=== PATIENT | female | born 1970 | race Hispanic/Latino ===

== ENCOUNTER 2017-07-25 10:46 | Observation (INO) | payer BC, OTHER ==
[2017-07-25] MEDS ORDERED: Sodium Chloride 0.9% 500 ML IV STA (11:53)
--- NOTE | 2017-07-25 12:00 | ED PDOC ---
HPI: Chest Pain Time Seen by Provider: 07/25/17 11:38 Chief Complaint (Nursing): Chest Pain Chief Complaint (Provider): chest pain History Per: Patient History/Exam Limitations: no limitations Onset/Duration Of Symptoms: Days (yesterday night) Current Symptoms Are (Timing): Better Additional Complaint(s): Pt. with off and on chest tightness to the left going to the shoulder and arm. No numbness, tingles, weakness, dyspnea, fever, cough, leg pain, long distance travel, hormone use. Has belching. No numbness, tingles. Seen at [facility] and sent to the ED. Past Medical History Reviewed: Nursing Documentation, Vital Signs Vital Signs: Last Vital Signs Temp 97.8 F 07/25/17 10:58 Pulse 59 L 07/25/17 10:58 Resp 18 07/25/17 10:58 BP 103/61 07/25/17 10:58 Pulse Ox 98 07/25/17 14:05 - Medical History PMH: No Chronic Diseases - Surgical History Surgical History: No Surg Hx - Family History Family History: States: Unknown Family Hx - Social History Current smoker - smoking cessation education provided: No Alcohol: None Drugs: Denies - Allergies Allergies/Adverse Reactions: Allergies Allergy/AdvReac Type Severity Reaction Status Date / Time No Known Allergies Allergy Verified 07/25/17 11:00 Review of Systems ROS Statement: Except As Marked, All Systems Reviewed And Found Negative Cardiovascular: Positive for: Chest Pain Musculoskeletal: Positive for: Arm Pain Physical Exam - Reviewed Nursing Documentation Reviewed: Yes Vital Signs Reviewed: Yes - Physical Exam Appears: Positive for: Non-toxic, No Acute Distress Head Exam: Positive for: ATRAUMATIC, NORMAL INSPECTION, NORMOCEPHALIC Skin: Positive for: Normal Color, Warm Eye Exam: Positive for: EOMI, Normal appearance, PERRL ENT: Positive for: Normal ENT Inspection Neck: Positive for: Normal, Painless ROM Cardiovascular/Chest: Positive for: Regular Rate, Rhythm, Chest Non Tender. Negative for: Edema Respiratory: Positive for: CNT, Normal Breath Sounds Gastrointestinal/Abdominal: Positive for: Normal Exam, Bowel Sounds, Soft. Negative for: Tenderness Back: Positive for: Normal Inspection. Negative for: L CVA Tenderness, R CVA Tenderness Extremity: Positive for: Normal ROM. Negative for: Tenderness, Pedal Edema Neurologic/Psych: Positive for: Alert, Oriented. Negative for: Motor/Sensory Deficits - Laboratory Results Result Diagrams: 07/25/17 13:10 07/25/17 13:10 Interpretation Of Abn Labs: no acute - ECG ECG: Positive for: Interpreted By Me, Viewed By Me ECG Rhythm: Positive for: Normal QRS, Sinus Rhythm, Nonspecific Changes ( inferior lead 2 and avf flattening t wave) O2 Sat by Pulse Oximetry: 98 Pulse Ox Interpretation: Normal - Radiology X-Ray: Read By Radiologist X-Ray Interpretation: No Acute Disease - Progress ED Course And Treament: 1520: Stable. AAOx3. Pain free. Spoke with Dr. Olivares. Will admit and give further orders. Disposition - Clinical Impression Clinical Impression: Chest pain - Patient ED Disposition Is Patient to be Admitted: Yes Counseled Patient/Family Regarding: Studies Performed, Diagnosis - Disposition Disposition Time: 14:30 Condition: STABLE - Pt Status Changed To: Hospital Disposition Of: Observation - POA Present On Arrival: None Core Measure Indicators: Chest Pain
[2017-07-25 13:20] LABS: EOS % 0.4 % (0.0-4.0); HEMOGLOBIN 12.2 g/dL (12.0-16.0); LYMPH # 2.3 K/uL (1.0-4.3); MEAN CELL VOLUME 89.9 fl (81.0-99.0); MEAN CORPUSCULAR HEMOGLOBIN 29.6 pg (27.0-31.0); MEAN PLATELET VOLUME 10.2 fl (7.2-11.7); MONO # 0.3 K/uL (0.0-0.8); MONO % 5.2 % (0.0-10.0); NEUT # 2.2 K/uL (1.8-7.0); NEUT % 45.4 % (50.0-75.0); NRBC % 0.2 % (0.0-0.0); RBC 4.12 Mil/uL (3.80-5.20); RED CELL DISTRIBUTION WIDTH 13.9 % (11.5-14.5); WHITE BLOOD COUNT 4.9 K/uL (4.8-10.8)
[2017-07-25 13:32] LABS: ALB/GLOB RATIO 1.5 (1.0-2.1); ALBUMIN 4.5 g/dL (3.5-5.0); ALT/SGPT 36 U/L (9-52); AST/SGOT 30 U/L (14-36); BLOOD UREA NITROGEN 11 mg/dl (7-17); CALCIUM 9.6 mg/dL (8.4-10.2); GFR AFRICAN-AMERICAN > 60; GFR NON-AFRICAN AMERICAN > 60; LIPASE 151 U/L (23-300)
[2017-07-25 13:51] LABS: INR 1.1 (0.9-1.2); PROTHROMBIN TIME 11.9 Seconds (9.8-13.1)
[2017-07-25 13:52] LABS: PARTIAL THROMBOPLASTIN TIME 28.8 Seconds (25.6-37.1)
--- NOTE | 2017-07-25 20:14 | CP.PCM.HP ---
History of Present Illness - History of Present Illness History of Present Illness: 47 yr old F presented to ED with complaint of left upper chest pain x 2 days. Denies any PMHx. Described chest pain as "squeezing" in nature, 01/02, had never experienced this pain before. Denies nausea, vomiting, sweating, SOB, fevers, chills or diarrhea. Denies weakness or syncope, no recent URI or sick contacts at home or work. Appetite is normal as is urine and stool output. LMP: 07/11/17 PMD: [facility] PMHx: none SurgHx: 2012, DNC 2011, right ACL repair 2003 FMHx: mother 1 month ago at age of 71 from Alzheimers', had breast cancer; father is 71-has heart failure, siblings are healthy SocHx: former smoker 2-3cig daily x 5 yrs, no current tobacco/Etoh or drugs, lives with 4 yr old daughter Medications: none Allergies: NKDA Present on Admission - Present on Admission Any Indicators Present on Admission: No History of DVT/PE: No History of Uncontrolled Diabetes: No Urinary Catheter: No Decubitus Ulcer Present: No History Surgical Site Infection Following: None Review of Systems - Review of Systems All systems: reviewed and no additional remarkable complaints except (for what is mentioned in the HPI) - Constitutional Constitutional: absent: Fever, Headache, Weight Loss, Weakness - EENT Eyes: absent: Blurred Vision, Change in Vision Ears: absent: Ear Discharge, Disequilibrium Nose/Mouth/Throat: absent: Nasal Congestion, Nasal Discharge - Cardiovascular Cardiovascular: Chest Pain. absent: Dyspnea, Palpitations, Pedal Edema, Syncope - Respiratory Respiratory: absent: Cough, Hemoptysis - Gastrointestinal Gastrointestinal: absent: Abdominal Pain, Nausea, Vomiting - Genitourinary Genitourinary: absent: Difficulty Urinating, Dysuria - Menstruation Menstruation: Normal Menses - Musculoskeletal Musculoskeletal: absent: Arthralgias - Integumentary Integumentary: absent: Bleeding Lesions - Neurological Neurological: absent: Confusion, Focal Weakness - Psychiatric Psychiatric: absent: Anxiety - Endocrine Endocrine: absent: Polydipsia, Polyuria - Hematologic/Lymphatic Hematologic: absent: Easy Bleeding, Easy Bruising Past Patient History - Past Social History Alcohol: None Drugs: Denies - PSYCHIATRIC Hx Substance Use: No - SURGICAL HISTORY Hx Surgeries: Yes Hx Section: Yes Hx Dilation and Curettage: Yes Other/Comment: right acl surgery - ANESTHESIA Hx Anesthesia: Yes Meds Allergies/Adverse Reactions: Allergies Allergy/AdvReac Type Severity Reaction Status Date / Time No Known Allergies Allergy Verified 07/25/17 11:00 Physical Exam - Constitutional Appears: No Acute Distress - Head Exam Head Exam: ATRAUMATIC, NORMOCEPHALIC - Eye Exam Eye Exam: EOMI Pupil Exam: PERRL - ENT Exam ENT Exam: Mucous Membranes Moist - Neck Exam Neck exam: Positive for: Full Rom. Negative for: Lymphadenopathy - Respiratory Exam Respiratory Exam: Clear to Auscultation Bilateral, NORMAL BREATHING PATTERN - Cardiovascular Exam Cardiovascular Exam: REGULAR RHYTHM, +S1 - GI/Abdominal Exam GI & Abdominal Exam: Normal Bowel Sounds, Soft. absent: Tenderness - Extremities Exam Extremities exam: Positive for: full ROM. Negative for: calf tenderness, pedal edema - Neurological Exam Neurological exam: Alert, CN II-XII Intact, Normal Gait, Oriented x3 - Psychiatric Exam Psychiatric exam: Normal Affect, Normal Mood - Skin Skin Exam: Dry, Normal Color, Warm Results - Vital Signs Recent Vital Signs: Last Vital Signs Temp 97.8 F 07/25/17 10:58 Pulse 59 L 07/25/17 10:58 Resp 18 07/25/17 10:58 BP 103/61 07/25/17 10:58 Pulse Ox 98 07/25/17 15:31 - Labs Result Diagrams: 07/25/17 13:10 07/25/17 13:10 Labs: Laboratory Results - last 24 hr 07/25/17 07/25/17 07/25/17 13:10 13:10 13:10 WBC 4.9 RBC 4.12 Hgb 12.2 Hct 37.1 MCV 89.9 MCH 29.6 MCHC 33.0 RDW 13.9 Plt Count 184 MPV 10.2 Neut % (Auto) 45.4 L Lymph % (Auto) 48.0 H Emmons % (Auto) 5.2 Eos % (Auto) 0.4 Baso % (Auto) 1.0 Neut # 2.2 Lymph # 2.3 Emmons # 0.3 Eos # 0.0 Baso # 0.0 PT 11.9 INR 1.1 APTT 28.8 Sodium 143 Potassium 4.1 Chloride 104 Carbon Dioxide 30 Anion Gap 13 BUN 11 Creatinine 0.6 L Est GFR ( Amer) > 60 Est GFR (Non-Af Amer) > 60 Random Glucose 90 Calcium 9.6 Total Bilirubin 0.7 AST 30 ALT 36 Alkaline Phosphatase 43 Troponin I < 0.0120 Total Protein 7.5 Albumin 4.5 Globulin 3.0 Albumin/Globulin Ratio 1.5 Lipase 151 Assessment & Plan - Assessment and Plan (Free Text) Assessment: 47 yr old F admitted for chest pain. -admit to telemetry -f/u serial troponins Q8hr -cardiac monitoring -heart healthy diet -Tylenol PRN pain -DVT prophylaxis-Lovenox 40mg SC QD - Date & Time Date: 07/25/17 Time: 15:35
[2017-07-25 23:26] VITALS: TEMP 98.1
[2017-07-26] MEDS ORDERED: Sodium Chloride 0.9% 1,000 ML IV SCH (01:30)
[2017-07-26 07:28] VITALS: RESP 16
[2017-07-26 08:14] VITALS: O2SAT 100
[2017-07-26] MEDS ORDERED: Enoxaparin 40 mg Syringe SC SCH (09:00)
[2017-07-26] MEDS: Sodium Chloride 0.9% 1,000 ML IV SCH ×2 (09:07→11:14)
[2017-07-26 11:28] VITALS: BP 106/57; PULSE 75
--- NOTE | 2017-07-26 14:27 | RAD ---
HISTORY: chest pain COMPARISON: Chest radiograph dated 02/07/2013 FINDINGS: LUNGS: No active pulmonary disease. PLEURA: No significant pleural effusion identified, no pneumothorax apparent. CARDIOVASCULAR: Normal. OSSEOUS STRUCTURES: No significant abnormalities. VISUALIZED UPPER ABDOMEN: Normal. OTHER FINDINGS: None. IMPRESSION: No active disease.
--- NOTE | 2017-07-26 22:45 | CP.PCM.DIS ---
Provider - Provider Date of Admission: 07/25/17 15:18 Attending physician: Marshall Olivares MD Primary care physician: [facility] Time Spent in preparation of Discharge (in minutes): 30 Diagnosis - Discharge Diagnosis (1) Non-cardiac chest pain Status: Resolved Priority: Low Hospital Course - Lab Results Lab Results: Most Recent Lab Values WBC 4.9 K/uL (4.8-10.8) 07/25/17 13:10 RBC 4.12 Mil/uL (3.80-5.20) 07/25/17 13:10 Hgb 12.2 g/dL (12.0-16.0) 07/25/17 13:10 Hct 37.1 % (34.0-47.0) 07/25/17 13:10 MCV 89.9 fl (81.0-99.0) 07/25/17 13:10 MCH 29.6 pg (27.0-31.0) 07/25/17 13:10 MCHC 33.0 g/dL (33.0-37.0) 07/25/17 13:10 RDW 13.9 % (11.5-14.5) 07/25/17 13:10 Plt Count 184 K/uL (130-400) 07/25/17 13:10 MPV 10.2 fl (7.2-11.7) 07/25/17 13:10 Neut % (Auto) 45.4 % (50.0-75.0) L 07/25/17 13:10 Lymph % (Auto) 48.0 % (20.0-40.0) H 07/25/17 13:10 Powell % (Auto) 5.2 % (0.0-10.0) 07/25/17 13:10 Eos % (Auto) 0.4 % (0.0-4.0) 07/25/17 13:10 Baso % (Auto) 1.0 % (0.0-2.0) 07/25/17 13:10 Neut # 2.2 K/uL (1.8-7.0) 07/25/17 13:10 Lymph # 2.3 K/uL (1.0-4.3) 07/25/17 13:10 Powell # 0.3 K/uL (0.0-0.8) 07/25/17 13:10 Eos # 0.0 K/uL (0.0-0.7) 07/25/17 13:10 Baso # 0.0 K/uL (0.0-0.2) 07/25/17 13:10 PT 11.9 Seconds (9.8-13.1) 07/25/17 13:10 INR 1.1 (0.9-1.2) 07/25/17 13:10 APTT 28.8 Seconds (25.6-37.1) 07/25/17 13:10 Sodium 143 mmol/l (132-148) 07/25/17 13:10 Potassium 4.1 MMOL/L (3.6-5.0) 07/25/17 13:10 Chloride 104 mmol/L (98-107) 07/25/17 13:10 Carbon Dioxide 30 mmol/L (22-30) 07/25/17 13:10 Anion Gap 13 (10-20) 07/25/17 13:10 BUN 11 mg/dl (7-17) 07/25/17 13:10 Creatinine 0.6 mg/dl (0.7-1.2) L 07/25/17 13:10 Est GFR ( Amer) > 60 07/25/17 13:10 Est GFR (Non-Af Amer) > 60 07/25/17 13:10 Random Glucose 90 mg/dL (65-105) 07/25/17 13:10 Calcium 9.6 mg/dL (8.4-10.2) 07/25/17 13:10 Total Bilirubin 0.7 mg/dl (0.2-1.3) 07/25/17 13:10 AST 30 U/L (14-36) 07/25/17 13:10 ALT 36 U/L (9-52) 07/25/17 13:10 Alkaline Phosphatase 43 U/L (38-126) 07/25/17 13:10 Total Protein 7.5 G/DL (6.3-8.2) 07/25/17 13:10 Troponin I < 0.0120 ng/mL (0.00-0.120) 07/26/17 07:05 Albumin 4.5 g/dL (3.5-5.0) 07/25/17 13:10 Globulin 3.0 gm/dL (2.2-3.9) 07/25/17 13:10 Albumin/Globulin Ratio 1.5 (1.0-2.1) 07/25/17 13:10 Lipase 151 U/L (23-300) 07/25/17 13:10 - Hospital Course Hospital Course: 47 yr old F admitted for chest pain. Chest pain resolved and was found to be noncardiac in nature. Troponins were negative x 3. Patient is medically stable for discharge with instructions to follow up with primary care physician within 1 week, take baby aspirin 81mg by mouth daily until you are evaluated by PMD, recommend daily exercise and activities to reduce stress. - Date & Time of H&P Date of H&P: 07/25/17 Time of H&P: 15:35 Discharge Exam - Head Exam Head Exam: ATRAUMATIC, NORMOCEPHALIC - Eye Exam Eye Exam: EOMI, PERRL - ENT Exam ENT Exam: Mucous Membranes Moist - Neck Exam Neck exam: Full Rom - Respiratory Exam Respiratory Exam: Clear to PA & Lateral, NORMAL BREATHING PATTERN - Cardiovascular Exam Cardiovascular Exam: REGULAR RHYTHM, +S1, +S2 - GI/Abdominal Exam GI & Abdominal Exam: Normal Bowel Sounds, Soft. absent: Tenderness - Extremities Exam Extremities exam: full ROM - Neurological Exam Neurological exam: Alert, CN II-XII Intact, Oriented x3 - Psychiatric Exam Psychiatric exam: Normal Affect, Normal Mood - Skin Skin Exam: Dry, Normal Color, Warm Discharge Plan - Discharge Medications Prescriptions: Ibuprofen [Advil] 400 mg PO Q6 PRN #20 tablet PRN Reason: Other - Follow Up Plan Condition: STABLE Disposition: HOME/ ROUTINE Instructions: Costochondritis (DC), Noncardiac Chest Pain (DC) Additional Instructions: -Follow up with your primary care physician within 1 week -Take baby aspirin 81mg by mouth daily until you are evaluated by your doctor in 1 week -recommend daily exercise and activities to reduce stress Referrals: Marshall Olivares MD [Staff Provider] - Clinical Quality Measures - Date & Time of Discharge Summary Date of Discharge Summary: 07/26/17 Time of Discharge Summary: 11:00
--- NOTE | 2017-07-27 09:57 | CARD ---
APPROVED REPORT EKG Measurement Heart [id number] <Conclusion> Normal sinus rhythm Nonspecific ST abnormality Abnormal ECG
== END 2017-07-26 11:28 | disposition home or self-care (01) ==
LOC: H.ER 10:46 → H.ERHOLD 15:18
PROVIDERS: ADMIT Family Medicine; ATTEND Family Medicine
DX: R07.89 Other chest pain (principal); Z87.891 Personal history of nicotine dependence
CPT/HCPCS: 71045; 80053; 83690; 84484; 85025; 85610; 85730; 93005; 99285; G0378; J2405; J7040